=== PATIENT | female | born 1945 | race Caucasian/White ===

== ENCOUNTER 2016-10-21 20:42 | Emergency (ER) | payer OTHER ==
[~2016-10-21] VITALS: Ht 162.6 cm; Wt 115.2 kg
[~2016-10-21 20:42] MED LIST: AMLO2.5T2 PO; AMLO5TAB2 PO; AMOX1TAB58 PO; ASPI325T8 PO; Amoxicillin/Potassium Clav PO; CIPR500T94 PO; DICL100G18 TP; DOXY100C2 PO; Doxycycline Hyclate PO; FLUC100T4 PO; FURO20TA3 PO; FURO40TA4 PO; GABA-585 PO; INSU100I17 SQ; INSU100I18 SQ; LEVO50TA5 PO; NORT25CA PO; OMEP40CA5 PO; OXYC-327 PO; Oxycodone Hcl/Acetaminophen PO; POTA10TA31 PO; POTASSIUM CHLO10 MEQ PO; SULF-143 PO; TRAM50TA PO
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
[2016-10-21 20:54] VITALS: BP 96/57
--- NOTE | 2016-10-22 07:20 | RAD ---
Exam: Left foot radiograph 10/21/2016 at 2100 hours Indication: Foot injury, specifically first digit Comparison: Left foot radiograph 07/17/2016 Technique: 3 views left foot are provided. Findings: There is no acute fracture or dislocation. There is joint space narrowing with endplate sclerosis involving the first metatarsophalangeal joint. Degenerative changes are noted at the sesamoid bones of the first digit. Plantar and posterior calcaneal enthesophytes are present. Dorsal osteophytes are noted along the tarsometatarsal articulation. No significant soft tissue swelling. No osseous erosion or soft tissue gas. Bone mineralization is within normal limits. Impression: No acute fracture or dislocation. Mild osteoarthrosis noted at the first MTP joint and tarsometatarsal articulation.
== END 2016-10-21 21:32 | disposition home or self-care (01) ==
LOC: ER 20:42
DX: S90.812A Abrasion, left foot, initial encounter (principal); I11.0 Hypertensive heart disease with heart failure; I50.9 Heart failure, unspecified; I25.10 Atherosclerotic heart disease of native coronary artery without angina pectoris; J44.9 Chronic obstructive pulmonary disease, unspecified; G89.29 Other chronic pain; Z88.0 Allergy status to penicillin; Z95.1 Presence of aortocoronary bypass graft; Y04.0XXA Assault by unarmed brawl or fight, initial encounter; Y93.89 Activity, other specified; Y92.481 Parking lot as the place of occurrence of the external cause; Y99.8 Other external cause status
CPT/HCPCS: 73630; 99284

== ENCOUNTER 2017-12-14 15:49 | Emergency (ER) | payer OTHER ==
[~2017-12-14] VITALS: Ht 162.6 cm; Wt 113.4 kg
[~2017-12-14 15:49] MED LIST changes: -AMLO5TAB2 PO; +AMLO5TAB7 PO; +POTA10TA12 PO; -POTASSIUM CHLO10 MEQ PO
[2017-12-14 15:50] VITALS: BP 123/73
[2017-12-14] MEDS ORDERED: traMADol 50 MG TABLET PO ONE (16:00)
[2017-12-14] MEDS ORDERED: TRAM50TA PO (16:41)
--- NOTE | 2017-12-14 16:42 | PHYS DOC ---
Past Medical History Past Medical History: CAD, CHF, COPD, CVA, Diabetes-Type II, Hypertension Additional Past Medical Histor: chronic pain, peripheral neuropathy Past Surgical History: Coronary Bypass Surgery, Other Additional Past Surgical Histo: TOE AMPUTATION. CABG x 3 Alcohol Use: None Drug Use: None Adult General Chief Complaint Chief Complaint: PAIN CONTROL HPI HPI Patient is a 72 year old female with history of diabetes type 2, hypertension, CHF, CAD, chronic lymphedema with chronic wounds to lower extremities, who presents today complaining of constant 10 out of 10 bilateral lower extremity pain that has been going on since this morning. Patient denies any known injury. She states she ran out of her tramadol. She is very rude and verbally aggressive to everyone. She will not even let us assess her. She states she is here for pain and wants to leave as soon as possible. Review of Systems Review of Systems Constitutional: Unable to assess HENT: Unable to assess Respiratory: Unable to assess Cardiovascular: Unable to assess GI: Unable to assess : Unable to assess Musculoskeletal: Denies back pain Integument: Chronic bilateral lower extremity wound Neurologic: Unable to assess All other systems were reviewed and found to be within normal limits, except as documented in this note. Current Medications Current Medications Current Medications Medications (Trade) Dose Ordered Sig/Anen Start Time Stop Time Status Last Admin Dose Admin Tramadol HCl (Ultram) 100 mg 1X ONCE 12/14/17 16:00 12/14/17 16:01 DC 12/14/17 16:18 100 MG Allergies Allergies Allergies Coded Allergies Type Severity Reaction Last Updated Verified Penicillins Adverse Reaction Mild see comment 02/14/15 Yes Physical Exam Physical Exam Constitutional: Well developed, well nourished, no acute distress, non-toxic appearance. [] HENT: Normocephalic, atraumatic, bilateral external ears normal, oropharynx moist, no oral exudates, nose normal. [] Skin: Warm, dry, no erythema, no rash. [] Back: No tenderness, no CVA tenderness. [] Extremities: Bilateral lower extremities with +3 chronic lymphedema. Missing right great toe, moderate erythema noted on the anterior aspect of bilateral lower extremities with some yellow discolorations-appears old. Unable to touch her lower extremities because she is not letting up do a full exam. Neurologic: Alert and oriented X 3, normal motor function, normal sensory function, no focal deficits noted. [] Psychologic: Rude, verbally aggressive. Current Patient Data Vital Signs Vital Signs Date Time Temp Pulse Resp B/P (MAP) Pulse Ox O2 Delivery O2 Flow Rate FiO2 12/14/17 16:18 20 88 Room Air 12/14/17 15:50 97.7 81 123/73 (90) 97.7 EKG EKG [] Radiology/Procedures Radiology/Procedures [] Course & Med Decision Making Course & Med Decision Making Pertinent Labs and Imaging studies reviewed. (See chart for details) This is a 72-year-old female patient presenting to the ED today from home with complaints of chronic lower extremity pain, she ran out of her tramadol. She is verbally aggressive. She is refusing care asking for pain medicine and to be discharged. She is given tramadol and discharged back home. Encouraged her to follow-up with her own PCP. Dragon Disclaimer Dragon Disclaimer This electronic medical record was generated, in whole or in part, using a voice recognition dictation system. Departure Departure Impression: Primary Impression: Chronic acquired lymphedema Additional Impression: Lower extremity pain, bilateral Disposition: 01 HOME, SELF-CARE Condition: STABLE Referrals: VERONICA GEE MD (PCP) Follow-up as soon as possible Patient Instructions: Chronic Pain Additional Instructions: You were seen in the emergency room for chronic lower extremity pain. Take the Tramadol as prescribed. Follow-up with your own doctor as soon as possible. Scripts Tramadol Hcl (TRAMADOL HCL) 50 Mg Tablet 100 MG PO BID PRN for PAIN, #30 TAB 0 Refills Prov: VALERIA YEH APRN 12/14/17 Problem Qualifiers VALERIA YEH APRN Dec 14, 2017 16:42
== END 2017-12-14 17:57 | disposition home or self-care (01) ==
LOC: ER 15:49
DX: I89.0 Lymphedema, not elsewhere classified (principal); M79.605 Pain in left leg; M79.604 Pain in right leg; I11.0 Hypertensive heart disease with heart failure; I50.9 Heart failure, unspecified; J44.9 Chronic obstructive pulmonary disease, unspecified; E11.9 Type 2 diabetes mellitus without complications; G89.29 Other chronic pain; I25.810 Atherosclerosis of coronary artery bypass graft(s) without angina pectoris; Z86.73 Personal history of transient ischemic attack (TIA), and cerebral infarction without residual deficits; Z88.0 Allergy status to penicillin
CPT/HCPCS: 99283